=== PATIENT | male | born 1960 | race Caucasian/White ===

== ENCOUNTER 2016-10-05 08:00 | Outpatient (CLI) | payer OTHER ==
[2016-10-05 18:59] LABS: BASOPHILS # (AUTO) 0.1 10^3/uL (0.0-0.1); BASOPHILS % (AUTO) 1.2 %; EOSINOPHILS # (AUTO) 0.2 10^3/uL (0.0-0.7); EOSINOPHILS % (AUTO) 2.5 %; HCT - HEMATOCRIT 42.9 % (42.0-52.0); HGB - HEMOGLOBIN 14.5 g/dL (14.0-18.0); LYMPHOCYTES # (AUTO) 1.6 10^3/uL (1.5-3.5); LYMPHOCYTES % (AUTO) 19.4 %; MEAN CORPUSCULAR HGB CONC 33.9 g/dL (32.0-36.0); MEAN CORPUSCULAR VOLUME 82.7 fL (80.0-94.0); MONOCYTES # (AUTO) 0.7 10^3/uL (0.0-1.0); MONOCYTES % (AUTO) 8.6 %; NEUTROPHILS # (AUTO) 5.7 10^3/uL (1.5-6.6); NEUTROPHILS % (AUTO) 68.3 %; RED BLOOD COUNT 5.19 10^6/uL (4.70-6.10); RED CELL DISTRIBUTION WIDTH 14.2 % (12.0-15.0); UNCORRECTED WHITE BLOOD COUNT 8.4 x10^3/uL; WHITE BLOOD COUNT 8.4 x10^3/uL (4.8-10.8)
[2016-10-05 19:28] LABS: ALBUMIN/GLOBULIN RATIO 1.8 (1.0-2.2); BILIRUBIN,TOTAL 0.8 mg/dL (0.2-1.0); CALCIUM 9.5 mg/dL (8.5-10.3); POTASSIUM 4.4 mmol/L (3.5-5.0); TOTAL PROTEIN 7.8 g/dL (6.7-8.2)
== END 2016-10-05 08:01 | disposition home or self-care (01) ==
LOC: LAB.WCP 08:00
PROVIDERS: ATTEND Family Medicine
DX: R10.9 Unspecified abdominal pain (principal)
CPT/HCPCS: 36415; 80053; 82150; 83690; 85025

== ENCOUNTER 2016-10-21 06:51 | Outpatient (CLI) | payer OTHER ==
[2016-10-21] MEDS ORDERED: IOPAMIDOL-300 50 ML VIAL PO ONE (07:04)
[2016-10-21] MEDS ORDERED: IOPAMIDOL-300 100 ML VIAL IVP ONE (09:14)
--- NOTE | 2016-10-21 15:22 | CT Report ---
CT ABDOMEN AND PELVIS WITH CONTRAST: 10/21/2016 CLINICAL INDICATION: Abdominal pain. TECHNIQUE: Axial CT images of the abdomen and pelvis were obtained with 100 mL Isovue-300 intravenou sly as well as oral contrast. No previous CT is available for comparison. In accordance with CT protocol optimization, one or more of the following dose reduction techniques w ere utilized for this exam: automated exposure control, adjustment of mA and/or KV based on patient size, or use of iterative reconstructive technique. FINDINGS: Limited evaluation of the lung bases is unremarkable. Abdomen: The liver, spleen, pancreas, and adrenal glands are unremarkable. The kidneys demonstrate cortical cysts. The gallbladder is surgically absent. No bowel dilatation, free gas, or free fluid is present. No abdominal adenopathy is seen. Pelvis: The appendix is seen in the right lower quadrant, and is normal in caliber. No pelvic adeno ja or free fluid is present. Osseous structures demonstrate degenerative changes. IMPRESSION: NO EVIDENT ETIOLOGY FOR PATIENT'S PAIN. CHANGES OF CHOLECYSTECTOMY. JOB #: [id number] EXT JOB #:[id number]
== END 2016-10-21 06:52 | disposition home or self-care (01) ==
LOC: DI 06:51
PROVIDERS: ATTEND Family Medicine
DX: R10.9 Unspecified abdominal pain (principal); Z90.49 Acquired absence of other specified parts of digestive tract
CPT/HCPCS: 74177; Q9967

== ENCOUNTER 2016-11-23 07:34 | Day surgery (SDC) | payer OTHER ==
[2016-11-23] MEDS ORDERED: LACTATED RINGERS 1,000 ML IV ONE (08:11)
[2016-11-23] MEDS ORDERED: MIDAZOLAM 2 MG/2 ML VIAL IVP ONE (08:40)
[2016-11-23] MEDS ORDERED: fentaNYL 100 MCG/2 ML VIAL IVP ONE (08:40)
[2016-11-23 09:39] VITALS: BP 132/70
== END 2016-11-23 07:35 | disposition home or self-care (01) ==
LOC: SDS 07:34
PROVIDERS: ATTEND Internal Medicine
PROC: 0DB58ZX Excision of Esophagus, Via Natural or Artificial Opening Endoscopic, Diagnostic (ICD-10-PCS; principal; 2016-11-23 08:30)
DX: K31.7 Polyp of stomach and duodenum (principal); R13.10 Dysphagia, unspecified; Z85.89 Personal history of malignant neoplasm of other organs and systems; K21.9 Gastro-esophageal reflux disease without esophagitis; I10 Essential (primary) hypertension; E03.9 Hypothyroidism, unspecified; Z87.891 Personal history of nicotine dependence
CPT/HCPCS: 43239; 88305; J7120

== ENCOUNTER 2017-04-11 23:23 | Emergency (ER) | payer OTHER ==
--- NOTE | 2017-04-11 23:33 | ED Physician Documentation ---
History of Present Illness - Stated complaint Stated Complaint: PALPITATIONS - Chief complaint Chief Complaint: Cardiac - History obtained from History obtained from: Patient - History of Present Illness Timing: Enter time (19:30), Today Pain level max: 0 Pain level now: 0 Improved by: no ameliorating factors Worsened by: no exacerbating factors - Additonal information Additional information: c/o irregular palpitations starting approximately 7:30 PM tonight, although he has had similar episodes at night for the past week. Denies chest pain, pressure , tightness. He says he had similar symptoms over 15 years ago, diagnosed with atrial fibrillation, and was given blood thinner but atrial fibrillation stopped the next day, and thus anticoagulation was also stopped the next day. Review of Systems Constitutional: denies: Fever Cardiac: reports: Palpitations. denies: Chest pain / pressure, Pedal edema, Calf pain Respiratory: reports: Reviewed and negative GI: reports: Reviewed and negative Neurologic: denies: Generalized weakness, Focal weakness, Numbness PD PAST MEDICAL HISTORY - Past Medical History Cardiovascular: Hypertension, Atrial fibrillation, Other Respiratory: Sleep apnea, CPAP use Neuro: None Endocrine/Autoimmune: HyPOthyroidism GI: GERD, Colon polyps : Kidney stones HEENT: Other Psych: Depression, Anxiety, Panic attacks Musculoskeletal: Chronic back pain Derm: None - Past Surgical History Past Surgical History: Yes General: Cholecystectomy, Colonoscopy HEENT: Tonsil/Adenoidectomy, Other - Present Medications Home Medications: Ambulatory Orders Medication Instructions Recorded Confirmed Atenolol 50 mg ORAL DAILY 08/31/14 12/19/16 Levothyroxine [Synthroid] 75 mcg ORAL DAILY 08/31/14 12/19/16 Sertraline [Zoloft] 100 mg PO DAILY 11/23/16 12/19/16 Alprazolam [Xanax] 0.5 mg PO PRN PRN 12/19/16 12/19/16 Esomeprazole Magnesium [Nexium] 40 mg PO DAILY 12/19/16 12/19/16 raNITIdine [Zantac] 150 mg PO BID 12/19/16 12/19/16 Rivaroxaban [Xarelto] 20 mg PO DAILY #30 tablet 04/12/17 - Allergies Allergies/Adverse Reactions: Allergies Allergy/AdvReac Type Severity Reaction Status Date / Time No Known Drug Allergies Allergy Verified 04/11/17 23:31 - Social History Does the pt smoke?: No Smoking Status: Never smoker Does the pt drink ETOH?: No Does the pt have substance abuse?: No - Immunizations Immunizations are current?: Yes PD ED PE NORMAL - Vitals Vital signs reviewed: Yes - General General: Alert and oriented X 3, No acute distress, Well developed/nourished - HEENT HEENT: Moist mucous membranes - Neck Neck: Supple, no meningeal sign - Cardiac Cardiac: No murmur - Respiratory Respiratory: No respiratory distress, Clear bilaterally - Abdomen Abdomen: Soft, Non tender - Derm Derm: Normal color, Warm and dry - Extremities Extremities: No edema - Neuro Neuro: Alert and oriented X 3 PD ED PE EXPANDED - Cardiac Cardiac: Irregularly irregular Results - Vitals Vitals: Vital Signs - 24 hr 04/11/17 04/11/17 04/12/17 23:26 23:33 00:03 Temperature 36.4 C L Heart Rate 119 H 93 Respiratory 18 12 Rate Blood Pressure 158/125 H 126/75 Blood Pressure 160/96 H [Left] O2 Saturation 99 99 04/12/17 04/12/17 04/12/17 01:06 02:19 02:47 Temperature Heart Rate 95 100 96 Respiratory 18 16 19 Rate Blood Pressure 122/81 H 116/81 H 116/78 Blood Pressure [Left] O2 Saturation 97 98 97 Oxygen O2 Source Room air - EKG (time done) No standard instances Rate: Rate (enter#) (113) Rhythm: Atrial fibrillation Drifting: Normal QRS: Normal Ischemia: Normal ST segments - Labs Labs: Laboratory Tests 04/12/17 04/12/17 04/12/17 00:00 00:00 00:00 WBC 4.9 RBC 5.42 Hgb 15.1 Hct 43.5 MCV 80.2 MCH 27.8 MCHC 34.6 RDW 14.0 Plt Count 211 MPV 8.5 Neut # 2.5 Lymph # 1.8 Sampson # 0.4 Eos # 0.1 Baso # 0.1 Absolute Nucleated RBC 0.00 Nucleated RBC % 0.1 PT 12.4 INR 1.1 APTT 28.3 Sodium 138 Potassium 3.5 Chloride 106 Carbon Dioxide 23 Anion Gap 9.0 BUN 17 Creatinine 1.0 Estimated GFR (MDRD) 77 L Glucose 107 H Calcium 9.5 Troponin I TSH 04/12/17 04/12/17 00:00 00:00 WBC RBC Hgb Hct MCV MCH MCHC RDW Plt Count MPV Neut # Lymph # Sampson # Eos # Baso # Absolute Nucleated RBC Nucleated RBC % PT INR APTT Sodium Potassium Chloride Carbon Dioxide Anion Gap BUN Creatinine Estimated GFR (MDRD) Glucose Calcium Troponin I < 0.04 TSH 6.31 H - Rads (name of study) chest xray Radiology: Prelim report reviewed, See rad report PD MEDICAL DECISION MAKING - ED course Complexity details: reviewed results, re-evaluated patient, considered differential, d/w patient ED course: During ED stay, patient remained in atrial fibrillation with beats/minute mostly in 90s and 100s range (few times went to 110s briefly). Blood pressure was normal to mildly hypertensive. Notably, patient felt symptoms were resolved when his pulse rate would drop to lower 90s; because of this, a definitive time of onset (less than 48 hours) is not possible. Thus, cardioversion in ED not undertaken. Instead, labs obtained and results are reassuring and unremarkable. We discussed options for blood thinners (coumadin vs. newer agents), and after discussion of risks/benefits of these agents, he opts for Xarelto. Dose of Xarelto given in ED and patient discharged, instructed to f/u with PMD, as further testing will be needed. Departure - Departure Disposition: 01 Home, Self Care Clinical Impression: Atrial fibrillation Condition: Good Instructions: ED Afib Follow-Up: Julian Maldonado DO [Primary Care Provider] - Prescriptions: Rivaroxaban [Xarelto] 20 mg PO DAILY #30 tablet Discharge Date/Time: 04/12/17 02:56
[2017-04-12 00:39] LABS: BASOPHILS # (AUTO) 0.1 10^3/uL (0.0-0.1); BASOPHILS % (AUTO) 1.7 %; EOSINOPHILS # (AUTO) 0.1 10^3/uL (0.0-0.7); EOSINOPHILS % (AUTO) 2.4 %; HGB - HEMOGLOBIN 15.1 g/dL (14.0-18.0); LYMPHOCYTES # (AUTO) 1.8 10^3/uL (1.5-3.5); LYMPHOCYTES % (AUTO) 36.9 %; MEAN CORPUSCULAR HEMOGLOBIN 27.8 pg (27.0-31.0); MEAN CORPUSCULAR HGB CONC 34.6 g/dL (32.0-36.0); MEAN CORPUSCULAR VOLUME 80.2 fL (80.0-94.0); MEAN PLATELET VOLUME 8.5 fL (7.4-11.4); MONOCYTES # (AUTO) 0.4 10^3/uL (0.0-1.0); MONOCYTES % (AUTO) 8.7 %; NEUTROPHILS # (AUTO) 2.5 10^3/uL (1.5-6.6); NEUTROPHILS % (AUTO) 50.3 %; PLT - PLATELET COUNT 211 10^3/uL (130-450); RED BLOOD COUNT 5.42 10^6/uL (4.70-6.10); WHITE BLOOD COUNT 4.9 x10^3/uL (4.8-10.8)
[2017-04-12 00:41] LABS: CALCIUM 9.5 mg/dL (8.5-10.3)
[2017-04-12 00:43] LABS: INR 1.1 (0.8-1.2); PT - PROTHROMBIN TIME 12.4 secs (9.9-12.6)
--- NOTE | 2017-04-12 00:44 | XRAY Preliminary Report ---
Exam: XR CHEST 2 VIEW X-RAY IMPRESSION: Normal 2-view chest radiography. [facility] SITE ID: [id number]
--- NOTE | 2017-04-12 01:22 | XRAY Report ---
EXAM: CHEST RADIOGRAPHY EXAM DATE: 04/12/2017 12:35 AM. CLINICAL HISTORY: Atrial fibrillation. COMPARISON: 08/31/2014. TECHNIQUE: 2 views. FINDINGS: Lungs/Pleura: No focal opacities evident. No pleural effusion. No pneumothorax. Normal volumes. Mediastinum: Heart and mediastinal contours are unremarkable. Other: None. IMPRESSION: Normal 2-view chest radiography. [facility] Referring Provider Line: [phone] SITE ID: [id number]
[2017-04-12] MEDS ORDERED: RIVAROXABAN 10 MG TABLET PO STA (02:35)
[2017-04-12 02:48] VITALS: BP 116/78
== END 2017-04-12 02:56 | disposition home or self-care (01) ==
LOC: ED 23:23
DX: I48.91 Unspecified atrial fibrillation (principal); I10 Essential (primary) hypertension; E03.9 Hypothyroidism, unspecified
CPT/HCPCS: 36415; 71046; 80048; 84443; 84484; 85025; 85610; 85730; 93005; 99284; A9270

== ENCOUNTER 2017-08-16 08:00 | Outpatient (CLI) | payer OTHER ==
[2017-08-16 12:46] LABS: BASOPHILS # (AUTO) 0.1 10^3/uL (0.0-0.1); BASOPHILS % (AUTO) 1.2 %; EOSINOPHILS # (AUTO) 0.2 10^3/uL (0.0-0.7); EOSINOPHILS % (AUTO) 2.8 %; HGB - HEMOGLOBIN 15.2 g/dL (14.0-18.0); LYMPHOCYTES # (AUTO) 1.5 10^3/uL (1.5-3.5); LYMPHOCYTES % (AUTO) 24.1 %; MEAN CORPUSCULAR HEMOGLOBIN 27.9 pg (27.0-31.0); MEAN CORPUSCULAR HGB CONC 33.3 g/dL (32.0-36.0); MEAN CORPUSCULAR VOLUME 83.9 fL (80.0-94.0); MEAN PLATELET VOLUME 9.1 fL (7.4-11.4); MONOCYTES # (AUTO) 0.5 10^3/uL (0.0-1.0); MONOCYTES % (AUTO) 8.2 %; NEUTROPHILS % (AUTO) 63.7 %; PLT - PLATELET COUNT 226 10^3/uL (130-450); RED BLOOD COUNT 5.43 10^6/uL (4.70-6.10); RED CELL DISTRIBUTION WIDTH 13.8 % (12.0-15.0); WHITE BLOOD COUNT 6.2 x10^3/uL (4.8-10.8)
[2017-08-16 13:18] LABS: ALBUMIN 4.8 g/dL (3.2-5.5); ALBUMIN/GLOBULIN RATIO 1.5 (1.0-2.2); ALKALINE PHOSPHATASE 60 IU/L (42-121); ALT ALANINE AMINOTRANSFERASE 30 IU/L (10-60); AST ASPARTATE AMINOTRANSFERASE 24 IU/L (10-42); BUN - BLOOD UREA NITROGEN 19 mg/dL (6-20); CALCIUM 9.6 mg/dL (8.5-10.3); CARBON DIOXIDE - CO2 26 mmol/L (21-32); CHLORIDE 104 mmol/L (101-111); CHOL/HDL RATIO 4.8 (<5.0); CHOLESTEROL 155 mg/dL; CREATININE 0.9 mg/dL (0.6-1.2); GFR - MDRD 87 (>89); GLUCOSE 97 mg/dL (70-100); HDL CHOLESTEROL 32 mg/dL; LDL CHOLESTEROL,CALCULATED 90 mg/dL; LDL/HDL RATIO 2.8 (<3.6); SODIUM 135 mmol/L (135-145); VLDL CHOLESTEROL 33 mg/dL
== END 2017-08-16 08:01 | disposition home or self-care (01) ==
LOC: LAB.WCP 08:00
PROVIDERS: ATTEND Family Medicine
DX: I10 Essential (primary) hypertension (principal); E78.1 Pure hyperglyceridemia; Z12.5 Encounter for screening for malignant neoplasm of prostate; E03.9 Hypothyroidism, unspecified
CPT/HCPCS: 36415; 80053; 80061; 83721; 84153; 84443; 85025

== ENCOUNTER 2018-05-31 22:03 | Outpatient (CLI) | payer OTHER ==
--- NOTE | 2018-06-01 01:02 | Ultrasound Report ---
Reason: PAIN IN SCROTUM Procedure Date: 05/31/2018 Accession Number: [id number] / [id number] Procedure: US - Testicle w/Doppler CPT Code: FULL RESULT: EXAM: SCROTAL ULTRASOUND EXAM DATE: 05/31/2018 11:42 PM. CLINICAL HISTORY: PAIN IN SCROTUM. COMPARISON: None. TECHNIQUE: Real-time scanning was performed with static images obtained. Color-flow images were utilized. FINDINGS: Right: Testis: 4.7 x 3.4 x 2.6 cm. Normal size and echotexture. No mass, calcification, or abnormal blood flow. Scrotal wall measures 5.3 mm. Epididymis: 1.3 x 0.9 x 0.7 cm. Normal size and echotexture. No mass or abnormal blood flow. Hydrocele: Small right hydrocele with some "debris" within the fluid. Varicocele: None. Left: Testis: 4.6 x 2.9 x 2.6 cm. Normal size and echotexture. No mass, calcification, or abnormal blood flow. Scrotal wall measures 5.0 mm. Epididymis: 0.8 x 1.0 x 1.2 cm. Normal size and echotexture. No mass or abnormal blood flow. Hydrocele: Small hydrocele. Varicocele: None. IMPRESSION: Small bilateral hydroceles [facility]
== END 2018-05-31 22:04 | disposition home or self-care (01) ==
LOC: DI 22:03
PROVIDERS: ATTEND Urology
DX: N50.82 Scrotal pain (principal); N43.3 Hydrocele, unspecified
CPT/HCPCS: 76870; 93975

== ENCOUNTER 2018-08-08 11:42 | Outpatient (CLI) | payer OTHER ==
--- NOTE | 2018-08-08 14:57 | CT Report ---
Reason: HISTORY OF KIDNEY STONES Procedure Date: 08/08/2018 Accession Number: [id number] / [id number] Procedure: CT - Abdomen/Pelvis WO CPT Code: FULL RESULT: EXAM: CT ABDOMEN AND PELVIS (CT KUB) WITHOUT CONTRAST. EXAM DATE: 08/08/2018 11:53 AM. CLINICAL HISTORY: History of kidney stones. COMPARISONS: ABDOMEN/PELVIS W/ 10/21/2016 8:42 AM. TECHNIQUE: Routine axial helical CT imaging was performed through the abdomen and pelvis without IV contrast. Reconstructions: Coronal and sagittal. In accordance with CT protocol optimization, one or more of the following dose reduction techniques were utilized for this exam: automated exposure control, adjustment of mA and/or KV based on patient size, or use of iterative reconstructive technique. FINDINGS: Lung Bases: Unremarkable. Right Kidney/Ureter: A right renal cyst and a renal hypodensity which is too small to characterize are noted. There is a parenchymal calcification versus nonobstructing 2 mm right renal stone. No hydronephrosis. Left Kidney/Ureter: No stones, hydronephrosis, or hydroureter. No perinephric fat stranding. Other Solid Organs: Splenomegaly is noted. The noncontrast adrenal glands, pancreas and liver are within normal limits. Gallbladder/Bile Ducts: Status post cholecystectomy. Peritoneal Cavity: No free fluid, free air or kyle adenopathy. Bowel is grossly unremarkable. Pelvic Organs: Mild prominence of the size of the prostate lifting the bladder floor with calcification seen within the prostate and moderate distention of the urinary bladder. Vasculature: Unremarkable. Other: None. IMPRESSION: 2 mm right renal stone versus parenchymal calcification. No hydronephrosis. [facility]
== END 2018-08-08 11:43 | disposition home or self-care (01) ==
LOC: DI 11:42
PROVIDERS: ATTEND Urology
DX: Z87.442 Personal history of urinary calculi (principal)
CPT/HCPCS: 74176